=== PATIENT | male | born 1980 | race African-American/Black ===

== ENCOUNTER 2016-10-01 18:50 | Emergency (ER) ==
[2016-10-01 19:07] LABS: MANUAL DIFF NEEDED? NO
[2016-10-01 19:11] LABS: BASO% 0.4 % (0.0-0.8); EOS# 0.01 X1000 (0.0-0.7); EOS% 0.1 % (0.0-10.0); HEMATOCRIT 47.1 % (42.0-52.0); HEMOGLOBIN 16.9 g/dL (14.0-18.0); LYMPH# 1.76 X1000 (1.2-3.4); LYMPH% 22.9 % (20.5-51.1); MCH 32.7 PG (27-31); MCHC 35.9 g/dL (33-37); MCV 91.1 FL (81-99); MONO# 0.75 X1000 (0.11-0.59); MONO% 9.8 % (1.7-9.3); MPV 9.6 FL (7.4-10.4); NEUT% 66.8 % (42.2-75.2); PLT 318 X1000 (130-400); RBC 5.17 XMIL (4.7-6.1)
[2016-10-01 19:27] LABS: URINE CULTURE NEEDED? NO; URINE MICRO REVIEW NEEDED? NO; URINE SOURCE CLEAN CATCH
[2016-10-01 19:34] LABS: BILIRUBIN URINE NEGATIVE (NEGATIVE); BLOOD URINE NEGATIVE (NEGATIVE); COLOR YELLOW; GLUCOSE URINE 100 mg/dL (NEGATIVE); LEUKOCYTES URINE NEGATIVE (NEGATIVE); NITRITE URINE NEGATIVE (NEGATIVE); PROTEIN URINE 30 mg/dL (NEGATIVE); SP GRAVITY URINE 1.025; TURBIDITY URINE CLEAR (CLEAR); UROBILINOGEN URINE 2 mg/dL (NORMAL)
[2016-10-01 19:35] LABS: UR EPITHELIAL CELLS <10 /HPF (<10); URINE BACTERIA NEGATIVE /HPF; URINE RBC <10 /HPF (<10); URINE WBC <10 /HPF (<10)
[2016-10-01 19:36] LABS: AGAP 14; ALBUMIN 4.3 g/dL (3.5-5.0); ALKALINE PHOSPHATASE 70 U/L (32-122); BUN 9 mg/dL (8-22); CALCIUM 9.2 mg/dL (8.8-10.2); CHLORIDE 102 mmol/L (98-107); COSMO 276; GOT 22 U/L (10-34); GPT 16 U/L (10-44); POTASSIUM 4.4 mmol/L (3.5-5.1); SODIUM 139 mmol/L (136-145); TCO2 23 mmol/L (25-35); TOTAL BILIRUBIN 0.98 mg/dL (0.20-1.00); TOTAL PROTEIN 7.6 g/dL (6.3-8.3)
[2016-10-01 19:41] LABS: UR AMPHETAMINES QUAL NONE DETECTED (NONE DETECT); UR BARBITUATES QUAL NONE DETECTED (NONE DETECT); UR BENZODIAZEPIN QUAL NONE DETECTED (NONE DETECT); UR CANNABINOIDS QUAL NONE DETECTED (NONE DETECT); UR COCAINE QUAL NONE DETECTED (NONE DETECT); UR METHADONE QUAL NONE DETECTED (NONE DETECT); UR OPIATES QUAL NONE DETECTED (NONE DETECT); UR OXYCODONE QUAL NONE DETECTED (NONE DETECT); UR PCP QUAL NONE DETECTED (NONE DETECT)
--- NOTE | 2016-10-01 19:42 | PROVIDER DOCUMENTATION ---
HPI-Psychological Disorder <Anton Ibrahim - Last Filed: 10/01/16 22:24> - General Source: patient - History of Present Illness-Psych Onset/Duration: reports: other (1 month) Timing: reports: still present Severity: reports: mild Situational problems related to:: reports: significant other Psychiatric Complaints: reports: depressed, suicidal ideation Previous psych related hospitalizations?: No Patient arrived by:: private car Similar Symptoms Previously?: No Recently seen or treated by another doctor?: No <Angelica Howell - Last Filed: 10/01/16 23:37> - General Chief Complaint: Psych Stated Complaint: ANXIETY Time Seen by Provider: 10/01/16 19:11 Allergies/Adverse Reactions: Patient Allergies Allergy/AdvReac Type Severity Reaction Status Date / Time No Known Allergies Allergy Verified 10/01/16 19:39 Home Medications: Home Medication List Medication Instructions Recorded Confirmed Last Taken Type Home Meds Unobtainable 10/01/16 10/01/16 Unknown History Review of Systems - Adult - REVIEW OF SYSTEMS - ADULT Constitutional: denies: chills, fever Eyes: reports: no symptoms reported Ears, Nose, Mouth & Throat: reports: no symptoms reported Cardiovascular: denies: chest pain, palpitations Respiratory: denies: cough, shortness of breath Gastrointestinal: denies: abdominal pain, nausea, vomiting Genitourinary: reports: no symptoms reported Musculoskeletal: denies: muscle aches, muscle weakness Integumentary: denies: skin sores/ulcer, skin thickening Neurological: reports: no symptoms reported Psychiatric: reports: depression, suicidal thoughts Endocrine: reports: no symptoms reported Hematologic/Lymphatic: reports: no symptoms reported Allergic/Immunologic: reports: no symptoms reported All Other Systems: Reviewed and Negative <Angelica Howell - Last Filed: 10/01/16 23:37> Past History - Adult - PAST MEDICAL HISTORY-ADULT Review of Records: reports: Nursing Assessment Review, Medications Reviewed Major Childhood Illnesses: reports: denies history Cardiovascular: reports: HTN Psychiatric: reports: anxiety - PRIOR SURGERIES/PROCEDURES Surgical/Procedure History: reports: none - IMMUNIZATION STATUS Childhood Immunizations: See Nurse Assessment Flu Vaccine: See Nurse Assessment - SOCIAL HISTORY Smoking: cigarettes, greater than 1 pack/day Provider spent 3-5 mins advising pt. on dangers of tobacco.: Discussed manners to quit use, and f/u contacts for add'l counseling. Substance Use: none/never Alcohol Use Frequency: never <Angelica Howell - Last Filed: 10/01/16 23:37> Physical Exam-Psych Focus - Physical Exam-Psych Initial Vital Signs Reviewed: Yes Appearance: appropriate appearance, appropriate insight, neat, no apparent distress, no memory impairment, denies illness, alert Neurological: alert, normal mood/affect, calm, mechanic's assistant II-XII nml as tested, oriented x 3 Behavior/Eye Contact/Speech: cooperative, good eye contact, normal speech Respiratory: chest non-tender, lungs clear, normal breath sounds Cardiovascular: normal peripheral pulses, regular rate, rhythm, no edema Integumentary: normal color, normal turgor, warm/dry <Angelica Howell - Last Filed: 10/01/16 23:37> Progress <Anton Ibrahim - Last Filed: 10/01/16 22:24> - EKG 1 Time of EKG reading by physician:: 21:23 EKG Read and Signed by:: Anton Ibrahim EKG Interpretation (*Must complete 3 of following elements*): Abnormal Rate: 72 Rhythm: NSR with sinus arrhythmia [place]: left Comments: inferior infarct, age undetermined - CONSULTS/PCP/HOSPITALIST Notification #1 *Consult/PCP/Hospitalist*: DMW Time Discussed: 21:56 Consult Disposition: other (Pt will contract for safety and follow up out patient.) <Angelica Howell - Last Filed: 10/01/16 23:37> - PLAN OF CARE/RESULTS Progress/Plan/Lab Results: plan of care: labs Orders Category Date Time Status ACETAMINOPHEN [TDM] Stat Lab 10/01/16 18:59 Completed ALCOHOL BLOOD Stat Lab 10/01/16 18:59 Completed CBC WITH ELECTRONIC DIFF [HEME] Stat Lab 10/01/16 18:59 Completed COMPREHENSIVE METABOLIC PANEL [CHEM] Stat Lab 10/01/16 18:59 Completed FREE T4 Stat Lab 10/01/16 18:59 Completed SALICYLATES [TDM] Stat Lab 10/01/16 18:59 Completed TSH Stat Lab 10/01/16 18:59 Completed URINALYSIS W/POSS RFLX CULT [URINALYSIS] Stat Lab 10/01/16 19:11 Completed URINE DRUG SCREEN Stat Lab 10/01/16 19:11 Completed VITAMIN B12 Stat Lab 10/01/16 18:59 Completed Laboratory Tests 10/01/16 10/01/16 10/01/16 18:59 18:59 18:59 WBC 7.67 RBC 5.17 Hgb 16.9 Hct 47.1 MCV 91.1 MCH 32.7 H MCHC 35.9 RDW Std Deviation 12.9 Plt Count 318 MPV 9.6 Immature Gran % (Auto) 0.0 Neut % (Auto) 66.8 Lymph % (Auto) 22.9 [place] % (Auto) 9.8 H Eos % (Auto) 0.1 Baso % (Auto) 0.4 Immature Gran # (Auto) 0.00 Neut # (Auto) 5.12 Lymph # (Auto) 1.76 [place] # (Auto) 0.75 H Eos # (Auto) 0.01 Baso # (Auto) 0.03 Sodium 139 Potassium 4.4 Chloride 102 Carbon Dioxide 23 L Anion Gap 14 BUN 9 Creatinine 0.9 Estimated GFR/1.73 m2 > 60 BUN/Creatinine Ratio 10 Glucose 88 POC Glucose Calculated Osmolality 276 Calcium 9.2 Total Bilirubin 0.98 AST 22 ALT 16 Alkaline Phosphatase 70 Total Protein 7.6 Albumin 4.3 Globulin 3.3 Albumin/Globulin Ratio 1.3 Vitamin B12 TSH Free T4 Urine Source Urine Color Urine Turbidity Urine pH Ur Specific Tell Urine Protein Ur Glucose (Stick) Ur Ketones (Stick) Urine Blood Urine Nitrite Urine Bilirubin Urobilinogen Dipstick Urine Leukocytes Urine WBC (Auto) Urine RBC (Auto) U Epithel Cells (Auto) Urine Bacteria (Auto) Salicylates Urine Opiates Screen Ur Oxycodone Screen Ur Methadone, Qual Acetaminophen Ur Barbiturates Screen Ur Phencyclidine Scrn Ur Amphetamines Screen U Benzodiazepines Scrn Urine Cocaine Screen U Cannabinoids Screen Plasma/Serum Ethyl Alc 10/01/16 10/01/16 10/01/16 18:59 18:59 18:59 WBC RBC Hgb Hct MCV MCH MCHC RDW Std Deviation Plt Count MPV Immature Gran % (Auto) Neut % (Auto) Lymph % (Auto) [place] % (Auto) Eos % (Auto) Baso % (Auto) Immature Gran # (Auto) Neut # (Auto) Lymph # (Auto) [place] # (Auto) Eos # (Auto) Baso # (Auto) Sodium Potassium Chloride Carbon Dioxide Anion Gap BUN Creatinine Estimated GFR/1.73 m2 BUN/Creatinine Ratio Glucose POC Glucose Calculated Osmolality Calcium Total Bilirubin AST ALT Alkaline Phosphatase Total Protein Albumin Globulin Albumin/Globulin Ratio Vitamin B12 379 TSH 1.05 Free T4 1.01 Urine Source Urine Color Urine Turbidity Urine pH Ur Specific Tell Urine Protein Ur Glucose (Stick) Ur Ketones (Stick) Urine Blood Urine Nitrite Urine Bilirubin Urobilinogen Dipstick Urine Leukocytes Urine WBC (Auto) Urine RBC (Auto) U Epithel Cells (Auto) Urine Bacteria (Auto) Salicylates < 3.00 L Urine Opiates Screen Ur Oxycodone Screen Ur Methadone, Qual Acetaminophen < 1.2 L Ur Barbiturates Screen Ur Phencyclidine Scrn Ur Amphetamines Screen U Benzodiazepines Scrn Urine Cocaine Screen U Cannabinoids Screen Plasma/Serum Ethyl Alc 10/01/16 10/01/16 10/01/16 19:11 19:11 21:13 WBC RBC Hgb Hct MCV MCH MCHC RDW Std Deviation Plt Count MPV Immature Gran % (Auto) Neut % (Auto) Lymph % (Auto) [place] % (Auto) Eos % (Auto) Baso % (Auto) Immature Gran # (Auto) Neut # (Auto) Lymph # (Auto) [place] # (Auto) Eos # (Auto) Baso # (Auto) Sodium Potassium Chloride Carbon Dioxide Anion Gap BUN Creatinine Estimated GFR/1.73 m2 BUN/Creatinine Ratio Glucose POC Glucose 141 H Calculated Osmolality Calcium Total Bilirubin AST ALT Alkaline Phosphatase Total Protein Albumin Globulin Albumin/Globulin Ratio Vitamin B12 TSH Free T4 Urine Source CLEAN CATCH Urine Color YELLOW Urine Turbidity CLEAR Urine pH 6.0 Ur Specific Tell 1.025 Urine Protein 30 A Ur Glucose (Stick) 100 A Ur Ketones (Stick) TRACE A Urine Blood NEGATIVE Urine Nitrite NEGATIVE Urine Bilirubin NEGATIVE Urobilinogen Dipstick 2 A Urine Leukocytes NEGATIVE Urine WBC (Auto) <10 Urine RBC (Auto) <10 U Epithel Cells (Auto) <10 Urine Bacteria (Auto) NEGATIVE Salicylates Urine Opiates Screen NONE DETECTED Ur Oxycodone Screen NONE DETECTED Ur Methadone, Qual NONE DETECTED Acetaminophen Ur Barbiturates Screen NONE DETECTED Ur Phencyclidine Scrn NONE DETECTED Ur Amphetamines Screen NONE DETECTED U Benzodiazepines Scrn NONE DETECTED Urine Cocaine Screen NONE DETECTED U Cannabinoids Screen NONE DETECTED Plasma/Serum Ethyl Alc Vital Signs - 24 hr 10/01/16 10/01/16 10/01/16 18:56 21:10 22:56 Temperature 98.1 F 98.3 F 98.8 F Pulse Rate 101 H 89 79 Respiratory 18 18 18 Rate Blood Pressure 173/116 155/104 145/92 O2 Sat by Pulse 100 99 100 Oximetry Pt given results and will be d/c home w/o rx to follow up with PCP. Pt verbally understood instructions. PT remained clinically stable throughout the course of the ED stay and will return if symptoms worsen. (Angelica Howell) Departure - Departure Time of Disposition Order: 22:24 Certified Medical Emergency: Emergent <Anton Ibrahim - Last Filed: 10/01/16 22:24> - Departure Certified Medical Emergency: Emergent <Angelica Howell - Last Filed: 10/01/16 23:37> - Departure DIAGNOSIS: Depression Qualifiers: Depression Type: unspecified Qualified Code(s): F32.9 - Major depressive disorder, single episode, unspecified Disposition: HOME 01 Condition: Good Additional Instructions: follow up with the mental health providers ED Follow Up Instructions: You have been treated by a care provider in the Emergency Department. These instructions are being provided to you so you can have an understanding of how to care for yourself upon discharge. Upon discharge from the Emergency Department, you are responsible for making arrangements for follow-up care by a physician of your choice. Take all prescribed medications as directed. Return to the Emergency Department immediately for any new or worsening symptoms. You may call the Physician Referral phone number at [phone] to obtain a list of Physicians who are taking new patients. Referrals: None,PCP [Primary Care Provider] - Forms: Return to School/Parent Work Instructions: Depression, Adult, [id number] Attestation - Scribe Verification/Attestation Scribe:: Angelica Howell Acting as Scribe for:: Anton Ibrahim Scribe documention review:: This chart was documented by a scribe and accurately reflects the service the provider performed and the decisions made by the provider. <Angelica Howell - Last Filed: 10/01/16 23:37> Physician Attestation
[2016-10-01 20:01] LABS: FREE T4 1.01 ng/dL (0.93-1.70)
[2016-10-01 22:56] VITALS: BP 145/92
--- NOTE | 2016-10-02 05:43 | EKG Report ---
Test Performed on : 10/01/2016 9:23:11 PM Test Reason : No ORder in [place] Blood Pressure : / mmHG Vent. Rate : 072 BPM Atrial Rate : 072 BPM P-R Int : 178 ms QRS Dur : 086 ms QT Int : 368 ms P-R-T Axes : 046 -32 014 degrees QTc Int : 402 ms Normal sinus rhythm. with sinus arrhythmia. Left axis deviation Inferior infarct , age undetermined Abnormal ECG When compared with ECG of 18-DEC-2008 06:09, T wave amplitude has increased in Anterior leads Unconfirmed Result
== END 2016-10-01 23:20 | disposition home or self-care (01) ==
LOC: ED 18:50
DX: F32.9 Major depressive disorder, single episode, unspecified (principal); R94.31 Abnormal electrocardiogram [ECG] [EKG]; I10 Essential (primary) hypertension; F17.210 Nicotine dependence, cigarettes, uncomplicated; Z71.6 Tobacco abuse counseling
CPT/HCPCS: 80053; 81001; 82607; 82948; 84439; 84443; 85025; 93005; G0480; 80320; 80324; 80329; 80345; 80346; 80349; 80353; 80358; 80361; 80365; 83992